=== PATIENT | male | born 1935 | race Caucasian/White ===

== ENCOUNTER → 2017-09-06 14:07 | Outpatient (CLI) | payer MEDICARE, OTHER ==
[2014-09-15 20:47] VITALS: BMI 24.7
[~2017-09-06 14:07] MED LIST: FLOMAX0.4 MG PO; HYDROCODON-ACE1 EAC7 PO; IPRAT-ALBUT 0.5-3 ML UPD; LANOXIN250 MCG PO; LEVAQUIN500 MG PO; MULTI-DAY VITAM1 TAB PO; PROSCAR5 MG PO; PULMICORT0.5 MG/21 INH; TOPROL XL25 MG PO; VITAMIN E400 UNI2 PO
== END | disposition home or self-care (01) ==
LOC: D.US 14:07
DX: N43.3 Hydrocele, unspecified (principal)